=== PATIENT | male | born 1985 | race Two or more races ===

== ENCOUNTER 2021-05-06 19:56 | Emergency (ER) | payer MEDICAID ==
[~2021-05-06] VITALS: Ht 180.3 cm; Wt 63.5 kg
[2021-05-06 19:57] VITALS: BP 131/85
== END 2021-05-07 00:13 | disposition home or self-care (01) ==
LOC: ER 19:56
DX: S63.91XA Sprain of unspecified part of right wrist and hand, initial encounter (principal); R60.0 Localized edema; W22.8XXA Striking against or struck by other objects, initial encounter; Y93.89 Activity, other specified; Y92.89 Other specified places as the place of occurrence of the external cause; Y99.8 Other external cause status
CPT/HCPCS: 73130

== ENCOUNTER 2021-08-09 19:42 | Emergency (ER) | payer MEDICAID ==
[~2021-08-09] VITALS: Ht 172.7 cm; Wt 68.0 kg
[2021-08-09] MEDS ORDERED: TETANUS-DIPTH-ACEL PERTUSSIS 0.5ML SYR Tdap IM ONE (20:15)
[2021-08-09] MEDS ORDERED: SODIUM CHLORIDE 0.9% 1,000 ML IV ONE (20:15)
[2021-08-09] MEDS ORDERED: MORPHINE SULFATE 4 MG/ML SYR/VIAL IV ONE ×2 (20:15→22:45)
[2021-08-09 21:41] LABS: Basophils # (auto) 0 10 ^3/uL (0-0.2); Basophils % (auto) 0.7 % (0.0-2.0); Eosinophils # (auto) 0.2 10 ^3/uL (0-0.8); Eosinophils % (auto) 3.1 % (0.0-7.0); Hematocrit 40.4 % (41.0-53.0); Hemoglobin 13.6 g/dL (13.5-17.5); Lymphocytes # (auto) 1.3 10 ^3/uL (0.4-5.4); Lymphocytes % (auto) 18.6 % (10.0-50.0); Mean Corpuscular Hemoglobin 32.4 pg (28.0-32.0); Mean Corpuscular Hgb Conc. 33.6 g/dL (32.0-36.0); Mean Corpuscular Volume 96.4 fL (80.0-100.0); Monocytes # (auto) 0.6 10 ^3/uL (0-1.3); Monocytes % (auto) 8.6 % (0.0-12.0); Neutrophils # (auto) 4.9 10 ^3/uL (1.6-8.6); Red Blood Cells 4.19 10^6/uL (4.5-5.90); White Blood Cell 7.1 10^3/uL (4.4-10.8)
[2021-08-09 21:56] LABS: Potassium 3.6 mmol/L (3.5-5.1)
[2021-08-09 22:02] LABS: INR 1.07 (0.9-1.15); Partial Thromboplastin Time 28.2 sec (23.6-33.0)
[2021-08-09 22:03] LABS: Albumin 3.7 g/dL (3.4-5.0); BUN/Creatinine Ratio 16.2; Bilirubin, Total 0.9 mg/dL (0.2-1.0); Calcium 8.2 mg/dL (8.5-10.1); Total Protein 6.6 g/dL (6.4-8.2)
[2021-08-09 22:37] VITALS: BP 145/76
[2021-08-09] MEDS ORDERED: ONDANSETRON HCL 4 MG/2 ML VIAL IV ONE (22:45)
== END 2021-08-09 23:02 | disposition short-term general hospital (02) ==
LOC: EDBD 19:42 → ER 19:44
DX: T20.27XA Burn of second degree of neck, initial encounter (principal); T21.21XA Burn of second degree of chest wall, initial encounter; T22.241A Burn of second degree of right axilla, initial encounter; T22.20XA Burn of second degree of shoulder and upper limb, except wrist and hand, unspecified site, initial encounter; T22.212A Burn of second degree of left forearm, initial encounter; Z90.49 Acquired absence of other specified parts of digestive tract; X19.XXXA Contact with other heat and hot substances, initial encounter; Y93.89 Activity, other specified; Y92.89 Other specified places as the place of occurrence of the external cause; Y99.8 Other external cause status
CPT/HCPCS: 36415; 36600; 80053; 82550; 82805; 83605; 85025; 85610; 85730; 90471; 90715; 93005; 96361; 96374; 96375; 96376; 99285; J2270; J2405; J7030